=== PATIENT | male | born 1995 | race Caucasian/White ===

== ENCOUNTER 2019-07-31 13:35 | Emergency (ER) | payer SELFPAY ==
[~2019-07-31] VITALS: Ht 177.8 cm; Wt 59.0 kg
[2019-07-31 14:16] VITALS: BP 123/58
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
== END 2019-07-31 17:06 | disposition home or self-care (01) ==
LOC: ER 13:35
DX: S00.12XA Contusion of left eyelid and periocular area, initial encounter (principal); H57.89 Other specified disorders of eye and adnexa; R11.2 Nausea with vomiting, unspecified; Y93.61 Activity, american tackle football; W51.XXXA Accidental striking against or bumped into by another person, initial encounter; Y92.89 Other specified places as the place of occurrence of the external cause; Y99.8 Other external cause status
CPT/HCPCS: 70450; 70480; 99284

== ENCOUNTER 2020-03-30 17:30 | Emergency (ER) | payer SELFPAY ==
[~2020-03-30] VITALS: Ht 177.8 cm; Wt 61.4 kg
[2020-03-30 17:42] VITALS: BP 130/82
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
--- NOTE | 2020-03-30 18:39 | RAD ---
Exam: Left foot 3 views INDICATION: Trauma TECHNIQUE: Frontal, lateral and oblique views of the left foot Comparisons: None FINDINGS: Bone mineralization is normal. No acute or healed fractures. Soft tissues are unremarkable. Joint spaces are well-maintained. IMPRESSION: No acute osseous abnormality. Electronically signed by: Purnima Gu MD (03/30/2020 6:35 PM) [id number]
[2020-03-30] MEDS ORDERED: IBUP-1007 PO (18:48)
== END 2020-03-30 19:01 | disposition home or self-care (01) ==
LOC: ER 17:30
DX: S90.32XA Contusion of left foot, initial encounter (principal); F17.200 Nicotine dependence, unspecified, uncomplicated; F12.90 Cannabis use, unspecified, uncomplicated; Y08.89XA Assault by other specified means, initial encounter; Y93.66 Activity, soccer; Y92.89 Other specified places as the place of occurrence of the external cause; Y99.8 Other external cause status
CPT/HCPCS: 73630; 99283

== ENCOUNTER 2020-06-23 16:51 | Emergency (ER) | payer SELFPAY ==
[~2020-06-23] VITALS: Ht 180.3 cm; Wt 61.0 kg
[~2020-06-23 16:51] MED LIST: IBUP-1007 PO
[2020-06-23 19:15] VITALS: BP 124/60
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
== END 2020-06-23 19:25 | disposition home or self-care (01) ==
LOC: ER 16:51
DX: S00.03XA Contusion of scalp, initial encounter (principal); F17.200 Nicotine dependence, unspecified, uncomplicated; F12.90 Cannabis use, unspecified, uncomplicated; F10.10 Alcohol abuse, uncomplicated; W22.8XXA Striking against or struck by other objects, initial encounter; Y93.89 Activity, other specified; Y92.89 Other specified places as the place of occurrence of the external cause; Y99.8 Other external cause status
CPT/HCPCS: 99282

== ENCOUNTER 2020-06-28 12:34 | Emergency (ER) | payer SELFPAY ==
[~2020-06-28] VITALS: Ht 177.8 cm; Wt 61.5 kg
[2020-06-28 13:10] VITALS: BP 123/68
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
== END 2020-06-28 15:01 | disposition home or self-care (01) ==
LOC: ER 12:34
DX: R68.84 Jaw pain (principal); K02.9 Dental caries, unspecified; F17.200 Nicotine dependence, unspecified, uncomplicated
CPT/HCPCS: 70486; 99284